=== PATIENT | female | born 1945 | race Caucasian/White ===

== ENCOUNTER 2016-06-01 06:01 | Day surgery (SDC) | payer SELFPAY ==
[2016-05-28 15:44] LABS: HEMATOCRIT 42.1 % (36.0-48.0); HEMOGLOBIN 14.1 g/dL (12.0-16.0)
[2016-05-28 15:59] LABS: BUN (BLOOD UREA NITROGEN) 16 MG/DL (6-23); CALCIUM, SERUM 8.9 MG/DL (8.5-10.4); CHLORIDE, SERUM 104 MMOL/L (96-112); CO2 (CARBON DIOXIDE) 28 MMOL/L (24-34); CREATININE 0.75 MG/DL (0.55-1.02); GFR AFRICAN AMERICAN 94 ML/MIN (>=60); GFR NON AFRICAN AMERICAN 81 ML/MIN (>=60); GLUCOSE, SERUM 90 MG/DL (60-99); POTASSIUM, SERUM 3.6 MMOL/L (3.5-5.3); SODIUM, SERUM 144 MMOL/L (135-148)
[~2016-06-01 06:01] MED LIST: ASAB PO; CITRACAL PO; COQ-10200 MG; DURAFLEX PO; FOSAMAX70 MG PO; MAGOX4; MOBIC15 MG; MULTIPLE VIT PO; OMEGA 3-6-9; PRAVAC PO; PRINZIDE1 TA1 PO; SUPER B COMP PO; VITAMIN B-121000 MC1 SL; VITAMIN D2000 UNIT
== END 2016-06-01 23:59 | disposition home or self-care (01) ==
LOC: MSC 06:01
PROVIDERS: Surgery Plastic and Reconstructive Surgery
PROC: 0J043ZZ Alteration of Right Neck Subcutaneous Tissue and Fascia, Percutaneous Approach (ICD-10-PCS; 2016-06-01)
PROC: 3E013GC Introduction of Other Therapeutic Substance into Subcutaneous Tissue, Percutaneous Approach (ICD-10-PCS; 2016-06-01)
PROC: 0W020ZZ Alteration of Face, Open Approach (ICD-10-PCS; principal; 2016-06-01 07:15)
PROC: 0J013ZZ Alteration of Face Subcutaneous Tissue and Fascia, Percutaneous Approach (ICD-10-PCS; 2016-06-01 07:15)
DX: Z41.1 Encounter for cosmetic surgery (principal); M19.90 Unspecified osteoarthritis, unspecified site; I10 Essential (primary) hypertension; E78.00 Pure hypercholesterolemia, unspecified; K21.9 Gastro-esophageal reflux disease without esophagitis; Z90.89 Acquired absence of other organs; Z98.890 Other specified postprocedural states; Z79.899 Other long term (current) drug therapy; Z86.69 Personal history of other diseases of the nervous system and sense organs; Z98.41 Cataract extraction status, right eye; Z98.42 Cataract extraction status, left eye
CPT/HCPCS: 80048; 85014; 85018; 93005; A9270-GY; J0690; J2250; J2370; J2405; J2710; J3010